=== PATIENT | female | born 1975 | race African-American/Black ===

== ENCOUNTER 2019-09-28 22:47 | Emergency (ER) | payer OTHER ==
[~2019-09-28] VITALS: Ht 170.2 cm; Wt 100.0 kg
[2019-09-28 22:55] VITALS: BP 119/70; PULSE 83; TEMP 98.2
[2019-09-28] MEDS ORDERED: NORCO 325 MG-51 TAB PO (23:27)
[2019-09-28] MEDS ORDERED: AMOXICILLIN 8751 TAB PO (23:27)
== END 2019-09-28 23:43 | disposition home or self-care (01) ==
LOC: COL.ER 22:47 → EDBD 22:49 → COL.ER 23:43
DX: K08.89 Other specified disorders of teeth and supporting structures (principal)